=== PATIENT | female | born 1960 | race Caucasian/White ===

== ENCOUNTER 2023-08-31 11:55 | Inpatient (IN) | payer BC ==
[2023-08-31 12:33] VITALS: BMI 22.4
[2023-08-31] MEDS ORDERED: LOPERAMIDE HCL 2 MG CAPSULE PO PRN (12:45)
[2023-08-31] MEDS ORDERED: ONDANSETRON *ODT* 4 MG TABLET SL PRN (12:45)
[2023-08-31] MEDS ORDERED: NALOXONE HCL 0.4 MG/ML VIAL IM PRN (12:45)
[2023-08-31] MEDS ORDERED: MAGNESIUM HYDROX 2400MG/30ML ORAL SUSPENSION 30 ML CUP PO PRN (12:45)
[2023-08-31] MEDS ORDERED: chlordiazePOXIDE HCL 25 MG CAPSULE PO PRN (12:45)
[2023-08-31] MEDS ORDERED: BISMUTH SUBSALICYLATE 524 MG/30 ML PO PRN (12:45)
[2023-08-31] MEDS ORDERED: guaiFENesin 600 MG TABLET.ER (FP) PO PRN (12:45)
[2023-08-31] MEDS ORDERED: DICYCLOMINE HCL 10 MG CAPSULE PO PRN (12:45)
[2023-08-31] MEDS ORDERED: BENZOCAINE/MENTHOL (CHLORASEPTIC ) LOZENGE MM PRN (12:45)
[2023-08-31] MEDS ORDERED: ACETAMINOPHEN 325 MG TABLET (FP) PO PRN (12:45)
[2023-08-31] MEDS ORDERED: IBUPROFEN 400 MG TABLET (FP) PO PRN (12:45)
[2023-08-31] MEDS ORDERED: MAG HYDROX/AL HYDROX/SIMETH 30 ML UNIT-DOSE CUP PO PRN (12:45)
[2023-08-31] MEDS ORDERED: POLYETHYLENE GLYCOL (HEALTHYLAX) 3350 17 GM PACKET PO PRN (12:45)
[2023-08-31] MEDS ORDERED: NALOXONE HCL (KLOXXADO) 8 MG SPRAY NS PRN (12:45)
[2023-08-31] MEDS: NICOTINE 21 MG/24 HOURS TOPICAL PATCH TD SCH (13:24)
[2023-08-31] MEDS: PRENATAL VITAMINS W/ FOLIC ACID TABLET (FP) PO SCH (13:24)
[2023-08-31] MEDS ORDERED: chlordiazePOXIDE HCL 25 MG CAPSULE PO ONE (13:30)
[2023-08-31] MEDS: ALBUTEROL SO4 HFA INHALER IH PRN ×2 (13:46→17:37)
[2023-08-31] MEDS: LISINOPRIL 10 MG TABLET PO SCH (14:07)
[2023-08-31] MEDS: hydrOXYzine PAMOATE 25 MG CAPSULE (FP) PO PRN (16:01)
[2023-08-31] MEDS: chlordiazePOXIDE HCL 25 MG CAPSULE PO SCH ×2 (17:34→22:33)
[2023-08-31] MEDS: BENZONATATE 200 MG CAPSULE PO PRN (21:08)
[2023-08-31] MEDS ORDERED: MELATONIN 5 MG TABLETS PO SCH (22:00)
[2023-08-31] MEDS: THIAMINE HCL 100 MG TABLET (FP) PO SCH (22:33)
[2023-09-01] MEDS: hydrOXYzine PAMOATE 25 MG CAPSULE (FP) PO PRN ×3 (01:15→22:08)
[2023-09-01] MEDS: METHOCARBAMOL 500 MG TABLET PO PRN (01:15)
[2023-09-01] MEDS: ALBUTEROL SO4 HFA INHALER IH PRN ×4 (01:16→22:06)
[2023-09-01] MEDS: chlordiazePOXIDE HCL 25 MG CAPSULE PO SCH ×4 (05:36→22:07)
[2023-09-01] MEDS: PRENATAL VITAMINS W/ FOLIC ACID TABLET (FP) PO SCH (10:13)
[2023-09-01] MEDS: NICOTINE 21 MG/24 HOURS TOPICAL PATCH TD SCH (10:13)
[2023-09-01] MEDS: LISINOPRIL 10 MG TABLET PO SCH (10:13)
[2023-09-01 12:24] LABS: POTASSIUM 4.4 mmol/L (3.5-5.1)
[2023-09-01 12:27] LABS: CALCIUM 10.5 mg/dL (8.5-10.1)
[2023-09-01 12:28] LABS: ALBUMIN 4.7 g/dl (3.4-5.0); BLOOD UREA NITROGEN 18.2 mg/dL (7-18)
[2023-09-01 12:31] LABS: CREATININE 0.8 mg/dL (0.55-1.3)
[2023-09-01 12:33] LABS: BILIRUBIN,TOTAL 0.9 mg/dL (0.2-1); TOT PROT 8.4 g/dl (6.4-8.2)
[2023-09-01 12:40] LABS: HEMATOCRIT 46.6 % (32.4-45.2); HEMOGLOBIN 14.8 GM/dL (10.7-15.3); MCH 30.1 pg (25.7-33.7); MCHC 31.7 g/dl (32.0-36.0); MEAN CELL VOLUME 94.9 fl (80-96); MEAN PLT VOLUME 9.9 fl (7.5-11.1); PLATELET COUNT 249 10^3/uL (134-434); RBC 4.91 M/mm3 (3.60-5.2); RDW 12.2 % (11.6-15.6); WHITE BLOOD COUNT 5.5 K/mm3 (4.0-10.0)
[2023-09-01] MEDS: LACTULOSE 20 GM/30 ML UDC (FOR ORAL USE ONLY) PO SCH ×2 (14:59→22:06)
[2023-09-01] MEDS: IBUPROFEN 600 MG TABLET (FP) PO PRN (15:01)
[2023-09-01] MEDS ORDERED: SUVOREXANT 10 MG TABLET PO PRN (22:00)
[2023-09-01] MEDS: THIAMINE HCL 100 MG TABLET (FP) PO SCH (22:07)
[2023-09-01] MEDS: traZODone HCL 50 MG TABLET (FP) PO PRN (22:08)
[2023-09-02] MEDS: ALBUTEROL SO4 HFA INHALER IH PRN ×3 (05:28→17:22)
[2023-09-02] MEDS: chlordiazePOXIDE HCL 25 MG CAPSULE PO SCH ×4 (05:29→22:02)
[2023-09-02] MEDS: LACTULOSE 20 GM/30 ML UDC (FOR ORAL USE ONLY) PO SCH ×4 (05:30→22:00)
[2023-09-02] MEDS: hydrOXYzine PAMOATE 25 MG CAPSULE (FP) PO PRN ×3 (05:31→22:02)
[2023-09-02] MEDS: NICOTINE 21 MG/24 HOURS TOPICAL PATCH TD SCH (10:04)
[2023-09-02] MEDS: PRENATAL VITAMINS W/ FOLIC ACID TABLET (FP) PO SCH (10:04)
[2023-09-02] MEDS: IBUPROFEN 600 MG TABLET (FP) PO PRN (14:47)
[2023-09-02] MEDS: METHOCARBAMOL 500 MG TABLET PO PRN (17:09)
[2023-09-02] MEDS: BENZONATATE 200 MG CAPSULE PO PRN (18:37)
[2023-09-02] MEDS: THIAMINE HCL 100 MG TABLET (FP) PO SCH (22:01)
[2023-09-02] MEDS: traZODone HCL 50 MG TABLET (FP) PO PRN (22:02)
[2023-09-03] MEDS ORDERED: chlordiazePOXIDE HCL 10 MG CAPSULE PO PRN
[2023-09-03] MEDS: chlordiazePOXIDE HCL 10 MG CAPSULE PO SCH ×4 (05:34→22:11)
[2023-09-03] MEDS: LACTULOSE 20 GM/30 ML UDC (FOR ORAL USE ONLY) PO SCH ×4 (05:34→22:36)
[2023-09-03] MEDS: hydrOXYzine PAMOATE 25 MG CAPSULE (FP) PO PRN ×3 (05:35→22:11)
[2023-09-03] MEDS: ALBUTEROL SO4 HFA INHALER IH PRN ×4 (05:43→22:29)
[2023-09-03] MEDS: PRENATAL VITAMINS W/ FOLIC ACID TABLET (FP) PO SCH (10:20)
[2023-09-03] MEDS: NICOTINE 21 MG/24 HOURS TOPICAL PATCH TD SCH (10:21)
[2023-09-03] MEDS: THIAMINE HCL 100 MG TABLET (FP) PO SCH (22:11)
[2023-09-03] MEDS: traZODone HCL 50 MG TABLET (FP) PO PRN (22:11)
[2023-09-04] MEDS: LACTULOSE 20 GM/30 ML UDC (FOR ORAL USE ONLY) PO SCH ×3 (05:41→22:03)
[2023-09-04] MEDS: chlordiazePOXIDE HCL 10 MG CAPSULE PO SCH ×2 (05:41→16:55)
[2023-09-04] MEDS: ALBUTEROL SO4 HFA INHALER IH PRN ×3 (05:42→22:03)
[2023-09-04] MEDS: PRENATAL VITAMINS W/ FOLIC ACID TABLET (FP) PO SCH (10:09)
[2023-09-04] MEDS: NICOTINE 21 MG/24 HOURS TOPICAL PATCH TD SCH (10:10)
[2023-09-04] MEDS: hydrOXYzine PAMOATE 25 MG CAPSULE (FP) PO PRN ×2 (10:13→22:02)
[2023-09-04] MEDS: METHOCARBAMOL 500 MG TABLET PO PRN ×2 (14:57→22:02)
[2023-09-04] MEDS: IBUPROFEN 600 MG TABLET (FP) PO PRN (19:04)
[2023-09-04 20:52] VITALS: RESP 16
[2023-09-04] MEDS: THIAMINE HCL 100 MG TABLET (FP) PO SCH (22:02)
[2023-09-04] MEDS: traZODone HCL 50 MG TABLET (FP) PO PRN (22:02)
[2023-09-05] MEDS ORDERED: chlordiazePOXIDE HCL 10 MG CAPSULE PO ONE (05:00)
[2023-09-05] MEDS: LACTULOSE 20 GM/30 ML UDC (FOR ORAL USE ONLY) PO SCH (05:27)
[2023-09-05] MEDS: hydrOXYzine PAMOATE 25 MG CAPSULE (FP) PO PRN (05:28)
[2023-09-05] MEDS: NICOTINE 21 MG/24 HOURS TOPICAL PATCH TD SCH (09:11)
[2023-09-05] MEDS: PRENATAL VITAMINS W/ FOLIC ACID TABLET (FP) PO SCH (09:11)
[2023-09-05 09:14] VITALS: BP 148/53; PULSE 74; TEMP 97.1
== END 2023-09-05 09:50 | disposition home or self-care (01) | DRG 775 ==
LOC: YASAS 11:55 → Y3N 13:15
PROVIDERS: ADMIT Allergy & Immunology; ATTEND Surgery
PROC: HZ2ZZZZ Detoxification Services for Substance Abuse Treatment (ICD-10-PCS; principal; 2023-08-31)
DX: F10.230 Alcohol dependence with withdrawal, uncomplicated (principal); F17.210 Nicotine dependence, cigarettes, uncomplicated; F10.280 Alcohol dependence with alcohol-induced anxiety disorder; F10.282 Alcohol dependence with alcohol-induced sleep disorder; F41.9 Anxiety disorder, unspecified; E72.20 Disorder of urea cycle metabolism, unspecified; I10 Essential (primary) hypertension; J45.909 Unspecified asthma, uncomplicated
CPT/HCPCS: 26055; 36415; 80053; 80307; 82140; 85027; 86780; 87635; 93005; 93010

== ENCOUNTER 2023-11-29 11:33 | Inpatient (IN) | payer MEDICARE, OTHER ==
[2023-11-29 11:57] VITALS: BMI 21.1
[2023-11-29] MEDS ORDERED: NALOXONE HCL (KLOXXADO) 8 MG SPRAY NS PRN (13:26)
[2023-11-29] MEDS ORDERED: DICYCLOMINE HCL 10 MG CAPSULE PO PRN (13:26)
[2023-11-29] MEDS ORDERED: guaiFENesin 600 MG TABLET.ER (FP) PO PRN (13:26)
[2023-11-29] MEDS ORDERED: POLYETHYLENE GLYCOL (HEALTHYLAX) 3350 17 GM PACKET PO PRN (13:26)
[2023-11-29] MEDS ORDERED: BENZONATATE 200 MG CAPSULE PO PRN (13:26)
[2023-11-29] MEDS ORDERED: BENZOCAINE/MENTHOL (CHLORASEPTIC ) LOZENGE MM PRN (13:26)
[2023-11-29] MEDS ORDERED: METHOCARBAMOL 500 MG TABLET PO PRN (13:26)
[2023-11-29] MEDS ORDERED: MAG HYDROX/AL HYDROX/SIMETH 30 ML UNIT-DOSE CUP PO PRN (13:26)
[2023-11-29] MEDS ORDERED: chlordiazePOXIDE HCL 25 MG CAPSULE PO ONE (13:26)
[2023-11-29] MEDS ORDERED: hydrOXYzine PAMOATE 25 MG CAPSULE (FP) PO PRN (13:26)
[2023-11-29] MEDS ORDERED: ONDANSETRON *ODT* 4 MG TABLET SL PRN (13:26)
[2023-11-29] MEDS ORDERED: NALOXONE HCL 0.4 MG/ML VIAL IM PRN (13:26)
[2023-11-29] MEDS ORDERED: BISMUTH SUBSALICYLATE 262 MG/15 ML BTL PO PRN (13:26)
[2023-11-29] MEDS ORDERED: LOPERAMIDE HCL 2 MG CAPSULE PO PRN (13:26)
[2023-11-29] MEDS ORDERED: chlordiazePOXIDE HCL 25 MG CAPSULE ONE (14:03)
[2023-11-29] MEDS ORDERED: NICOTINE 21 MG/24 HOURS TOPICAL PATCH ONE (14:04)
[2023-11-29] MEDS ORDERED: ALBUTEROL SO4 HFA INHALER IH ONE (14:04)
[2023-11-29] MEDS: ALBUTEROL SO4 HFA INHALER IH PRN (14:25)
[2023-11-29] MEDS: NICOTINE 21 MG/24 HOURS TOPICAL PATCH TD SCH (14:26)
[2023-11-29] MEDS: IBUPROFEN 400 MG TABLET (FP) PO PRN (15:18)
[2023-11-29] MEDS ORDERED: chlordiazePOXIDE HCL 25 MG CAPSULE PO SCH (17:00)
[2023-11-29] MEDS: chlordiazePOXIDE HCL 25 MG CAPSULE PO SCH ×2 (17:22→22:08)
[2023-11-29] MEDS: traZODone HCL 50 MG TABLET (FP) PO SCH (22:08)
[2023-11-29] MEDS: THIAMINE HCL 100 MG TABLET (FP) PO SCH (22:08)
[2023-11-29] MEDS: MELATONIN 5 MG TABLETS PO SCH (22:08)
[2023-11-30] MEDS: ALBUTEROL SO4 HFA INHALER IH PRN ×5 (02:10→22:28)
[2023-11-30] MEDS: chlordiazePOXIDE HCL 25 MG CAPSULE PO PRN ×2 (02:11→13:25)
[2023-11-30] MEDS: chlordiazePOXIDE HCL 25 MG CAPSULE PO SCH ×4 (05:38→22:24)
[2023-11-30] MEDS: IBUPROFEN 400 MG TABLET (FP) PO PRN (07:08)
[2023-11-30] MEDS ORDERED: hydrOXYzine PAMOATE 25 MG CAPSULE (FP) PO ONE (09:30)
[2023-11-30] MEDS: LISINOPRIL 10 MG TABLET PO SCH (10:04)
[2023-11-30] MEDS: NICOTINE 21 MG/24 HOURS TOPICAL PATCH TD SCH (10:05)
[2023-11-30] MEDS: PRENATAL VITAMINS W/ FOLIC ACID TABLET (FP) PO SCH (10:05)
[2023-11-30] MEDS: ACETAMINOPHEN 325 MG TABLET (FP) PO PRN ×2 (10:07→17:10)
[2023-11-30 11:35] LABS: HEMATOCRIT 35.5 % (32.4-45.2); HEMOGLOBIN 11.9 GM/dL (10.7-15.3); MCH 31.2 pg (25.7-33.7); MCHC 33.5 g/dl (32.0-36.0); MEAN CELL VOLUME 93.2 fl (80-96); MEAN PLT VOLUME 8.8 fl (7.5-11.1); PLATELET COUNT 181 10^3/uL (134-434); RBC 3.81 M/mm3 (3.60-5.2); RDW 13.8 % (11.6-15.6); WHITE BLOOD COUNT 3.9 K/mm3 (4.0-10.0)
[2023-11-30 11:42] LABS: CHLORIDE 106 mmol/L (98-107); POTASSIUM 4.2 mmol/L (3.5-5.1); SODIUM 140 mmol/L (136-145)
[2023-11-30 11:44] LABS: CALCIUM 9.3 mg/dL (8.5-10.1)
[2023-11-30 11:45] LABS: ALBUMIN 3.1 g/dl (3.4-5.0); ANION GAP 6 mmol/L (4-13); BLOOD UREA NITROGEN 21.6 mg/dL (7-18); CO2 28 mmol/L (21-32); GLUCOSE,RANDOM 129 mg/dL (74-106)
[2023-11-30 11:47] LABS: SGPT/ALT 26 U/L (13-61)
[2023-11-30 11:48] LABS: CREATININE 0.9 mg/dL (0.55-1.3); SGOT/AST 13 U/L (15-37)
[2023-11-30 11:49] LABS: TOT PROT 6.5 g/dl (6.4-8.2)
[2023-11-30 11:50] LABS: BILIRUBIN,TOTAL 0.3 mg/dL (0.2-1)
[2023-11-30 11:51] LABS: ALK PHOS 53 U/L (45-117)
[2023-11-30] MEDS: hydrOXYzine PAMOATE 25 MG CAPSULE (FP) PO PRN ×2 (17:11→23:26)
[2023-11-30] MEDS: MELATONIN 5 MG TABLETS PO SCH (22:23)
[2023-11-30] MEDS: traZODone HCL 50 MG TABLET (FP) PO SCH (22:24)
[2023-11-30] MEDS: THIAMINE HCL 100 MG TABLET (FP) PO SCH (22:24)
[2023-11-30] MEDS: guaiFENesin 200 MG/10 ML 10 ML UNIT-DOSE CUPS PO PRN (23:29)
[2023-11-30] MEDS: IBUPROFEN 600 MG TABLET (FP) PO PRN (23:38)
[2023-12-01] MEDS: guaiFENesin 200 MG/10 ML 10 ML UNIT-DOSE CUPS PO PRN (05:38)
[2023-12-01] MEDS: chlordiazePOXIDE HCL 25 MG CAPSULE PO SCH ×4 (05:38→22:11)
[2023-12-01] MEDS: hydrOXYzine PAMOATE 25 MG CAPSULE (FP) PO PRN ×2 (05:39→11:46)
[2023-12-01] MEDS: ALBUTEROL SO4 HFA INHALER IH PRN ×3 (05:39→22:11)
[2023-12-01] MEDS: PRENATAL VITAMINS W/ FOLIC ACID TABLET (FP) PO SCH (10:06)
[2023-12-01] MEDS: LISINOPRIL 10 MG TABLET PO SCH (10:06)
[2023-12-01] MEDS: NICOTINE 21 MG/24 HOURS TOPICAL PATCH TD SCH (10:07)
[2023-12-01] MEDS: MAGNESIUM HYDROX 2400MG/30ML ORAL SUSPENSION 30 ML CUP PO PRN ×2 (11:07→17:14)
[2023-12-01] MEDS: IBUPROFEN 600 MG TABLET (FP) PO PRN (12:42)
[2023-12-01] MEDS ORDERED: hydrOXYzine PAMOATE 25 MG CAPSULE (FP) PO ONE (14:15)
[2023-12-01] MEDS: chlordiazePOXIDE HCL 25 MG CAPSULE PO PRN (14:25)
[2023-12-01] MEDS: traZODone HCL 50 MG TABLET (FP) PO SCH (22:10)
[2023-12-01] MEDS: THIAMINE HCL 100 MG TABLET (FP) PO SCH (22:11)
[2023-12-01] MEDS: MELATONIN 5 MG TABLETS PO SCH (22:11)
[2023-12-01] MEDS: hydrOXYzine PAMOATE 50 MG CAPSULE (FP) PO PRN (22:13)
[2023-12-02] MEDS ORDERED: chlordiazePOXIDE HCL 10 MG CAPSULE PO PRN
[2023-12-02] MEDS: chlordiazePOXIDE HCL 10 MG CAPSULE PO SCH ×4 (05:44→22:56)
[2023-12-02] MEDS: hydrOXYzine PAMOATE 50 MG CAPSULE (FP) PO PRN ×2 (05:46→14:19)
[2023-12-02] MEDS: ALBUTEROL SO4 HFA INHALER IH PRN ×3 (05:49→15:33)
[2023-12-02] MEDS: LISINOPRIL 10 MG TABLET PO SCH (10:26)
[2023-12-02] MEDS: NICOTINE 21 MG/24 HOURS TOPICAL PATCH TD SCH (10:26)
[2023-12-02] MEDS: PRENATAL VITAMINS W/ FOLIC ACID TABLET (FP) PO SCH (10:26)
[2023-12-02] MEDS: IBUPROFEN 600 MG TABLET (FP) PO PRN (10:27)
[2023-12-02] MEDS: traZODone HCL 50 MG TABLET (FP) PO SCH (22:54)
[2023-12-02] MEDS: MELATONIN 5 MG TABLETS PO SCH (22:54)
[2023-12-02] MEDS: THIAMINE HCL 100 MG TABLET (FP) PO SCH (22:55)
[2023-12-03] MEDS: chlordiazePOXIDE HCL 10 MG CAPSULE PO SCH ×2 (05:45→17:46)
[2023-12-03] MEDS: hydrOXYzine PAMOATE 50 MG CAPSULE (FP) PO PRN ×3 (06:14→22:37)
[2023-12-03] MEDS: IBUPROFEN 600 MG TABLET (FP) PO PRN ×2 (07:03→14:24)
[2023-12-03] MEDS: ALBUTEROL SO4 HFA INHALER IH PRN ×2 (07:17→17:47)
[2023-12-03] MEDS: PRENATAL VITAMINS W/ FOLIC ACID TABLET (FP) PO SCH (09:24)
[2023-12-03] MEDS: NICOTINE 21 MG/24 HOURS TOPICAL PATCH TD SCH (09:24)
[2023-12-03] MEDS: LISINOPRIL 10 MG TABLET PO SCH (09:24)
[2023-12-03] MEDS: traZODone HCL 50 MG TABLET (FP) PO SCH (22:36)
[2023-12-03] MEDS: MELATONIN 5 MG TABLETS PO SCH (22:37)
[2023-12-03] MEDS: THIAMINE HCL 100 MG TABLET (FP) PO SCH (22:37)
[2023-12-04] MEDS ORDERED: chlordiazePOXIDE HCL 10 MG CAPSULE PO ONE (05:00)
[2023-12-04] MEDS: ALBUTEROL SO4 HFA INHALER IH PRN (05:49)
[2023-12-04] MEDS: IBUPROFEN 600 MG TABLET (FP) PO PRN (05:51)
[2023-12-04] MEDS: hydrOXYzine PAMOATE 50 MG CAPSULE (FP) PO PRN (05:51)
[2023-12-04] MEDS: LISINOPRIL 10 MG TABLET PO SCH (09:12)
[2023-12-04] MEDS: NICOTINE 21 MG/24 HOURS TOPICAL PATCH TD SCH (09:12)
[2023-12-04] MEDS: PRENATAL VITAMINS W/ FOLIC ACID TABLET (FP) PO SCH (09:12)
[2023-12-04 09:19] VITALS: BP 158/70; PULSE 81; RESP 16; TEMP 97.6
[2023-12-04] MEDS: MAGNESIUM HYDROX 2400MG/30ML ORAL SUSPENSION 30 ML CUP PO PRN (10:40)
== END 2023-12-04 11:04 | disposition home or self-care (01) | DRG 897 ==
LOC: YASAS 11:33 → Y3N 14:20
PROVIDERS: ADMIT Allergy & Immunology; ATTEND Allergy & Immunology
PROC: HZ2ZZZZ Detoxification Services for Substance Abuse Treatment (ICD-10-PCS; principal; 2023-11-29)
DX: F10.230 Alcohol dependence with withdrawal, uncomplicated (principal); F17.210 Nicotine dependence, cigarettes, uncomplicated; F41.9 Anxiety disorder, unspecified; F32.A Depression, unspecified; I10 Essential (primary) hypertension; J45.909 Unspecified asthma, uncomplicated; Z20.822 Contact with and (suspected) exposure to COVID-19
CPT/HCPCS: 36415; 80053; 80307; 85027; 86780; 87635; 93005; 93010

== ENCOUNTER 2024-01-30 13:40 | Inpatient (IN) | payer OTHER ==
[2024-01-30 14:26] VITALS: BMI 19.5
[2024-01-30] MEDS ORDERED: NALOXONE HCL (KLOXXADO) 8 MG SPRAY NS PRN (16:38)
[2024-01-30] MEDS ORDERED: MAGNESIUM HYDROX 2400MG/30ML ORAL SUSPENSION 30 ML CUP PO PRN (16:38)
[2024-01-30] MEDS ORDERED: BISMUTH SUBSALICYLATE 524 MG/30 ML PO PRN (16:38)
[2024-01-30] MEDS ORDERED: LOPERAMIDE HCL 2 MG CAPSULE PO PRN (16:38)
[2024-01-30] MEDS ORDERED: POLYETHYLENE GLYCOL (HEALTHYLAX) 3350 17 GM PACKET PO PRN (16:38)
[2024-01-30] MEDS ORDERED: NALOXONE HCL 0.4 MG/ML VIAL IM PRN (16:38)
[2024-01-30] MEDS ORDERED: BENZOCAINE/MENTHOL (CHLORASEPTIC ) LOZENGE MM PRN (16:38)
[2024-01-30] MEDS ORDERED: ONDANSETRON *ODT* 4 MG TABLET SL PRN (16:38)
[2024-01-30] MEDS: chlordiazePOXIDE HCL 25 MG CAPSULE PO SCH (17:13)
[2024-01-30] MEDS: chlordiazePOXIDE HCL 25 MG CAPSULE PO ONE (17:13)
[2024-01-30] MEDS: hydrOXYzine PAMOATE 25 MG CAPSULE (FP) PO PRN (17:15)
[2024-01-30] MEDS: PRENATAL VITAMINS W/ FOLIC ACID TABLET (FP) PO SCH (17:50)
[2024-01-30] MEDS: IBUPROFEN 400 MG TABLET (FP) PO PRN (17:51)
[2024-01-30] MEDS: NICOTINE POLACRILEX 2 MG GUM BUC PRN (18:17)
[2024-01-30] MEDS: DICYCLOMINE HCL 10 MG CAPSULE PO PRN (18:31)
[2024-01-30] MEDS: ALBUTEROL SO4 HFA INHALER IH PRN (20:17)
[2024-01-30] MEDS: THIAMINE HCL 100 MG TABLET (FP) PO SCH (22:31)
[2024-01-30] MEDS: MELATONIN 5 MG TABLETS PO SCH (22:31)
[2024-01-30] MEDS: MAG HYDROX/AL HYDROX/SIMETH 30 ML UNIT-DOSE CUP PO PRN (22:35)
[2024-01-31] MEDS: LISINOPRIL 10 MG TABLET PO SCH (09:09)
[2024-01-31] MEDS: NICOTINE 14 MG/24 HOURS TOPICAL PATCH TD SCH (10:02)
[2024-01-31] MEDS ORDERED: NICOTINE 21 MG/24 HOURS TOPICAL PATCH TD SCH (10:15)
[2024-01-31] MEDS: NICOTINE 7 MG/24 HOURS TOPICAL PATCH TD ONE (11:17)
[2024-01-31 12:02] LABS: BASO % 0.4 % (0-2.0); EOS % 2.5 % (0-4.5); HEMOGLOBIN 12.8 GM/dL (10.7-15.3); LYMPH % 15.4 % (8-40); MCH 31.9 pg (25.7-33.7); MCHC 34.6 g/dl (32.0-36.0); MEAN CELL VOLUME 92.2 fl (80-96); MEAN PLT VOLUME 8.4 fl (7.5-11.1); MONO % 11.7 % (3.8-10.2); PLATELET COUNT 182 10^3/uL (134-434); RBC 4.01 M/mm3 (3.60-5.2); RDW 12.7 % (11.6-15.6); WHITE BLOOD COUNT 4.8 K/mm3 (4.0-10.0)
[2024-01-31] MEDS: VITAMINS A AND D TOPICAL OINTMENT TP SCH (12:02)
[2024-01-31 12:13] LABS: POTASSIUM 4.3 mmol/L (3.5-5.1)
[2024-01-31] MEDS: chlordiazePOXIDE HCL 25 MG CAPSULE PO PRN (12:22)
[2024-01-31 12:25] LABS: ALBUMIN 3.2 g/dl (3.4-5.0); CREATININE 1.1 mg/dL (0.55-1.3)
[2024-01-31 12:26] LABS: BILIRUBIN,TOTAL 0.4 mg/dL (0.2-1); BLOOD UREA NITROGEN 22.4 mg/dL (7-18); TOT PROT 6.7 g/dl (6.4-8.2)
[2024-01-31] MEDS: hydrOXYzine PAMOATE 25 MG CAPSULE (FP) PO ONE (15:11)
[2024-01-31] MEDS: guaiFENesin 600 MG TABLET.ER (FP) PO PRN (15:37)
[2024-01-31] MEDS: chlordiazePOXIDE HCL 10 MG CAPSULE PO SCH (17:42)
[2024-01-31] MEDS: ACETAMINOPHEN 325 MG TABLET (FP) PO PRN (18:43)
[2024-01-31] MEDS: MELATONIN 5 MG TABLETS PO SCH (22:07)
[2024-01-31] MEDS: IBUPROFEN 600 MG TABLET (FP) PO PRN (22:07)
[2024-01-31] MEDS: traZODone HCL 50 MG TABLET (FP) PO SCH (22:07)
[2024-01-31] MEDS: METHOCARBAMOL 500 MG TABLET PO PRN (22:08)
[2024-02-01] MEDS: chlordiazePOXIDE HCL 25 MG CAPSULE PO SCH (06:00)
[2024-02-01] MEDS: NICOTINE 21 MG/24 HOURS TOPICAL PATCH TD PRN (10:26)
[2024-02-01 17:55] VITALS: RESP 16
[2024-02-01] MEDS: BENZONATATE 200 MG CAPSULE PO PRN (19:26)
[2024-02-02] MEDS ORDERED: chlordiazePOXIDE HCL 10 MG CAPSULE PO PRN
[2024-02-02] MEDS: chlordiazePOXIDE HCL 10 MG CAPSULE PO SCH (05:45)
[2024-02-02 07:04] VITALS: BP 127/61; PULSE 69; TEMP 97.6
[2024-02-03] MEDS ORDERED: chlordiazePOXIDE HCL 10 MG CAPSULE PO SCH (05:00)
[2024-02-04] MEDS ORDERED: chlordiazePOXIDE HCL 10 MG CAPSULE PO ONE (05:00)
== END 2024-02-02 09:45 | disposition home or self-care (01) | DRG 897 ==
LOC: YASAS 13:40 → Y6N 16:22
PROVIDERS: ADMIT Allergy & Immunology; ATTEND Surgery
PROC: HZ2ZZZZ Detoxification Services for Substance Abuse Treatment (ICD-10-PCS; principal; 2024-01-30)
DX: F10.230 Alcohol dependence with withdrawal, uncomplicated (principal); F17.210 Nicotine dependence, cigarettes, uncomplicated; F10.280 Alcohol dependence with alcohol-induced anxiety disorder; F10.282 Alcohol dependence with alcohol-induced sleep disorder; F10.24 Alcohol dependence with alcohol-induced mood disorder; F32.A Depression, unspecified; F41.9 Anxiety disorder, unspecified; I10 Essential (primary) hypertension; J45.20 Mild intermittent asthma, uncomplicated; Z28.310 Unvaccinated for COVID-19; Z28.9 Immunization not carried out for unspecified reason
CPT/HCPCS: 36415; 80053; 85025; 86780; 93005; 93010

== ENCOUNTER 2024-02-27 11:36 | Inpatient (IN) | payer OTHER ==
[2024-02-27 13:04] VITALS: BMI 21.2
[2024-02-27] MEDS ORDERED: BENZONATATE 200 MG CAPSULE PO PRN (14:39)
[2024-02-27] MEDS ORDERED: BENZOCAINE/MENTHOL (CHLORASEPTIC ) LOZENGE MM PRN (14:39)
[2024-02-27] MEDS ORDERED: LOPERAMIDE HCL 2 MG CAPSULE PO PRN (14:39)
[2024-02-27] MEDS ORDERED: ONDANSETRON *ODT* 4 MG TABLET SL PRN (14:39)
[2024-02-27] MEDS ORDERED: IBUPROFEN 400 MG TABLET (FP) PO PRN (14:39)
[2024-02-27] MEDS ORDERED: POLYETHYLENE GLYCOL (HEALTHYLAX) 3350 17 GM PACKET PO PRN (14:39)
[2024-02-27] MEDS ORDERED: MAGNESIUM HYDROX 2400MG/30ML ORAL SUSPENSION 30 ML CUP PO PRN (14:39)
[2024-02-27] MEDS ORDERED: guaiFENesin 600 MG TABLET.ER (FP) PO PRN (14:39)
[2024-02-27] MEDS ORDERED: BISMUTH SUBSALICYLATE 262 MG/15 ML BTL PO PRN (14:39)
[2024-02-27] MEDS ORDERED: DICYCLOMINE HCL 10 MG CAPSULE PO PRN (14:39)
[2024-02-27] MEDS ORDERED: MAG HYDROX/AL HYDROX/SIMETH 30 ML UNIT-DOSE CUP PO PRN (14:39)
[2024-02-27] MEDS: NICOTINE 14 MG/24 HOURS TOPICAL PATCH TD SCH (14:58)
[2024-02-27] MEDS ORDERED: chlordiazePOXIDE HCL 25 MG CAPSULE ONE (15:11)
[2024-02-27] MEDS: chlordiazePOXIDE HCL 25 MG CAPSULE PO PRN (15:15)
[2024-02-27] MEDS ORDERED: chlordiazePOXIDE HCL 25 MG CAPSULE PO SCH (17:00)
[2024-02-27] MEDS: chlordiazePOXIDE HCL 25 MG CAPSULE PO SCH (17:15)
[2024-02-27] MEDS: IBUPROFEN 600 MG TABLET (FP) PO PRN (17:16)
[2024-02-27] MEDS: THIAMINE 100 MG TABLET PO SCH (22:04)
[2024-02-27] MEDS: MELATONIN 5 MG TABLETS PO SCH (22:04)
[2024-02-27] MEDS: hydrOXYzine PAMOATE 25 MG CAPSULE (FP) PO PRN (22:07)
[2024-02-28] MEDS: ALBUTEROL SO4 HFA INHALER IH PRN (08:20)
[2024-02-28] MEDS: LISINOPRIL 5 MG TABLET PO SCH (09:08)
[2024-02-28] MEDS: PRENATAL VITAMINS W/ FOLIC ACID TABLET (FP) PO SCH (09:09)
[2024-02-28] MEDS ORDERED: NICOTINE POLACRILEX 4 MG GUM BUC PRN (14:12)
[2024-02-28 16:48] LABS: URINE APPEARANCE CLEAR; URINE BILIRUBIN NEGATIVE (NEGATIVE); URINE COLOR YELLOW; URINE GLUCOSE (UA) NEGATIVE (NEGATIVE); URINE KETONE NEGATIVE (NEGATIVE); URINE LEUK ESTERASE NEGATIVE (NEGATIVE); URINE NITRITE NEGATIVE (NEGATIVE); URINE PROTEIN NEGATIVE (NEGATIVE); URINE UROBILINOGEN 0.2 mg/dL (0.2-1.0)
[2024-02-28] MEDS: traZODone HCL 50 MG TABLET (FP) PO SCH (22:05)
[2024-02-29] MEDS ORDERED: chlordiazePOXIDE HCL 25 MG CAPSULE PO SCH (05:00)
[2024-02-29] MEDS: chlordiazePOXIDE HCL 10 MG CAPSULE PO SCH (05:31)
[2024-02-29] MEDS: NICOTINE 21 MG/24 HOURS TOPICAL PATCH TD SCH (10:13)
[2024-02-29] MEDS: ACETAMINOPHEN 325 MG TABLET (FP) PO PRN (14:09)
[2024-02-29] MEDS: ESTROGENS,CONJUGATE VAGINAL CR 30 GM TUBE VG SCH (22:09)
[2024-03-01] MEDS ORDERED: chlordiazePOXIDE HCL 10 MG CAPSULE PO PRN
[2024-03-01] MEDS ORDERED: chlordiazePOXIDE HCL 10 MG CAPSULE PO SCH (05:00)
[2024-03-01] MEDS: chlordiazePOXIDE HCL 10 MG CAPSULE PO SCH (05:42)
[2024-03-01 06:55] VITALS: BP 136/60; PULSE 66; RESP 16; TEMP 97.3
[2024-03-02] MEDS ORDERED: chlordiazePOXIDE HCL 10 MG CAPSULE PO ONE (05:00)
[2024-03-02] MEDS ORDERED: chlordiazePOXIDE HCL 10 MG CAPSULE PO SCH (05:00)
[2024-03-03] MEDS ORDERED: chlordiazePOXIDE HCL 10 MG CAPSULE PO ONE (05:00)
== END 2024-03-01 09:02 | disposition home or self-care (01) | DRG 897 ==
LOC: YASAS 11:36 → Y6N 15:19
PROVIDERS: ADMIT Allergy & Immunology; ATTEND Surgery
PROC: HZ2ZZZZ Detoxification Services for Substance Abuse Treatment (ICD-10-PCS; principal; 2024-02-27)
DX: F10.230 Alcohol dependence with withdrawal, uncomplicated (principal); F17.210 Nicotine dependence, cigarettes, uncomplicated; F10.24 Alcohol dependence with alcohol-induced mood disorder; F32.A Depression, unspecified; I10 Essential (primary) hypertension; J45.20 Mild intermittent asthma, uncomplicated; M17.11 Unilateral primary osteoarthritis, right knee; N95.1 Menopausal and female climacteric states; Z28.310 Unvaccinated for COVID-19; Z28.9 Immunization not carried out for unspecified reason
CPT/HCPCS: 81003; J1410

== ENCOUNTER 2024-05-14 11:57 | Inpatient (IN) | payer OTHER ==
[2024-05-14 12:40] VITALS: BMI 20.7
[2024-05-14] MEDS ORDERED: POLYETHYLENE GLYCOL (HEALTHYLAX) 3350 17 GM PACKET PO PRN (13:05)
[2024-05-14] MEDS ORDERED: ONDANSETRON *ODT* 4 MG TABLET SL PRN (13:05)
[2024-05-14] MEDS ORDERED: NICOTINE POLACRILEX 2 MG LOZENGE BC PRN (13:05)
[2024-05-14] MEDS ORDERED: IBUPROFEN 400 MG TABLET (FP) PO PRN (13:05)
[2024-05-14] MEDS ORDERED: BENZOCAINE/MENTHOL (CHLORASEPTIC ) LOZENGE MM PRN (13:05)
[2024-05-14] MEDS ORDERED: LOPERAMIDE HCL 2 MG CAPSULE PO PRN (13:05)
[2024-05-14] MEDS ORDERED: BISMUTH SUBSALICYLATE 524 MG/30 ML PO PRN (13:05)
[2024-05-14] MEDS ORDERED: MAG HYDROX/AL HYDROX/SIMETH 30 ML UNIT-DOSE CUP PO PRN (13:05)
[2024-05-14] MEDS ORDERED: BENZONATATE 200 MG CAPSULE PO PRN (13:05)
[2024-05-14] MEDS ORDERED: NICOTINE 21 MG/24 HOURS TOPICAL PATCH ONE (14:02)
[2024-05-14] MEDS: NICOTINE 21 MG/24 HOURS TOPICAL PATCH TD SCH (14:09)
[2024-05-14] MEDS ORDERED: diazePAM 5 MG TABLET ONE (14:18)
[2024-05-14] MEDS: diazePAM 5 MG TABLET PO PRN (14:21)
[2024-05-14] MEDS ORDERED: IBUPROFEN 600 MG TABLET (FP) PO ONE (14:24)
[2024-05-14] MEDS: IBUPROFEN 600 MG TABLET (FP) PO PRN (14:25)
[2024-05-14] MEDS: ALBUTEROL SO4 HFA INHALER IH PRN (15:14)
[2024-05-14] MEDS: diazePAM 5 MG TABLET PO SCH (17:23)
[2024-05-14] MEDS: ACETAMINOPHEN 325 MG TABLET (FP) PO PRN (17:24)
[2024-05-14] MEDS: MELATONIN 5 MG TABLETS PO SCH (22:34)
[2024-05-14] MEDS: THIAMINE 100 MG TABLET PO SCH (22:34)
[2024-05-15] MEDS: PRENATAL VITAMINS W/ FOLIC ACID TABLET (FP) PO SCH (10:02)
[2024-05-15] MEDS: hydrOXYzine PAMOATE 25 MG CAPSULE (FP) PO PRN (12:22)
[2024-05-15 13:47] LABS: HEMATOCRIT 38.2 % (32.4-45.2); HEMOGLOBIN 12.9 GM/dL (10.7-15.3); MCH 32.1 pg (25.7-33.7); MCHC 33.8 g/dl (32.0-36.0); MEAN CELL VOLUME 94.8 fl (80-96); MEAN PLT VOLUME 8.7 fl (7.5-11.1); PLATELET COUNT 203 10^3/uL (134-434); RBC 4.03 M/mm3 (3.60-5.2); RDW 12.6 % (11.6-15.6); WHITE BLOOD COUNT 4.9 K/mm3 (4.0-10.0)
[2024-05-15 13:54] LABS: CHLORIDE 101 mmol/L (98-107); POTASSIUM 4.8 mmol/L (3.5-5.1); SODIUM 137 mmol/L (136-145)
[2024-05-15 14:00] LABS: ALBUMIN 3.9 g/dl (3.4-5.0); ANION GAP 5 mmol/L (4-13); BLOOD UREA NITROGEN 29.6 mg/dL (7-18); CALCIUM 9.4 mg/dL (8.5-10.1); CO2 32 mmol/L (21-32); GLUCOSE,RANDOM 77 mg/dL (74-106)
[2024-05-15 14:02] LABS: SGOT/AST 40 U/L (15-37); SGPT/ALT 90 U/L (13-61)
[2024-05-15 14:03] LABS: BILIRUBIN,TOTAL 0.4 mg/dL (0.2-1)
[2024-05-15 14:04] LABS: TOT PROT 7.4 g/dl (6.4-8.2)
[2024-05-15 14:06] LABS: ALK PHOS 70 U/L (45-117)
[2024-05-15] MEDS: guaiFENesin 600 MG TABLET.ER (FP) PO PRN (21:06)
[2024-05-15] MEDS: traZODone HCL 50 MG TABLET (FP) PO SCH (22:21)
[2024-05-16] MEDS: diazePAM 5 MG TABLET PO SCH (05:28)
[2024-05-16] MEDS: MAGNESIUM HYDROX 2400MG/30ML ORAL SUSPENSION 30 ML CUP PO PRN (09:57)
[2024-05-16 21:46] VITALS: TEMP 97.6
[2024-05-17] MEDS: diazePAM 5 MG TABLET PO SCH (05:37)
[2024-05-17] MEDS: cloNIDine HCL 0.1 MG TABLET PO ONE (09:22)
[2024-05-17 09:24] VITALS: BP 153/83; PULSE 87; RESP 18
[2024-05-18] MEDS ORDERED: diazePAM 5 MG TABLET PO ONE (06:00)
== END 2024-05-17 09:33 | disposition home or self-care (01) | DRG 897 ==
LOC: YASAS 11:57 → Y3N 13:58
PROVIDERS: ADMIT Allergy & Immunology; ATTEND Surgery
PROC: HZ2ZZZZ Detoxification Services for Substance Abuse Treatment (ICD-10-PCS; principal; 2024-05-14)
DX: F10.230 Alcohol dependence with withdrawal, uncomplicated (principal); F17.210 Nicotine dependence, cigarettes, uncomplicated; F10.282 Alcohol dependence with alcohol-induced sleep disorder; F41.9 Anxiety disorder, unspecified; G47.00 Insomnia, unspecified; I10 Essential (primary) hypertension; N95.1 Menopausal and female climacteric states
CPT/HCPCS: 36415; 80053; 80305; 80307; 85027; 86780; 93005; 93010

== ENCOUNTER 2024-06-12 11:50 | Inpatient (IN) | payer OTHER ==
[2024-06-12] MEDS ORDERED: MAG HYDROX/AL HYDROX/SIMETH 30 ML UNIT-DOSE CUP PO PRN (14:44)
[2024-06-12] MEDS ORDERED: NALOXONE HCL 0.4 MG/ML VIAL IM PRN (14:44)
[2024-06-12] MEDS ORDERED: LOPERAMIDE HCL 2 MG CAPSULE PO PRN (14:44)
[2024-06-12] MEDS ORDERED: DICYCLOMINE HCL 10 MG CAPSULE PO PRN (14:44)
[2024-06-12] MEDS ORDERED: ONDANSETRON *ODT* 4 MG TABLET SL PRN (14:44)
[2024-06-12] MEDS ORDERED: POLYETHYLENE GLYCOL (HEALTHYLAX) 3350 17 GM PACKET PO PRN (14:44)
[2024-06-12] MEDS ORDERED: BENZOCAINE/MENTHOL (CHLORASEPTIC ) LOZENGE MM PRN (14:44)
[2024-06-12] MEDS ORDERED: NALOXONE (NARCAN) HCL 4 MG/0.1 ML SPRAY NS PRN (14:44)
[2024-06-12] MEDS ORDERED: BISMUTH SUBSALICYLATE 262 MG/15 ML BTL PO PRN (14:44)
[2024-06-12] MEDS ORDERED: PRENATAL VITAMINS W/ FOLIC ACID TABLET (FP) PO ONE (14:57)
[2024-06-12] MEDS ORDERED: NICOTINE 21 MG/24 HOURS TOPICAL PATCH ONE (14:57)
[2024-06-12] MEDS: PRENATAL VITAMINS W/ FOLIC ACID TABLET (FP) PO SCH (14:58)
[2024-06-12] MEDS: NICOTINE 21 MG/24 HOURS TOPICAL PATCH TD SCH (14:58)
[2024-06-12] MEDS ORDERED: IBUPROFEN 600 MG TABLET (FP) PO ONE (15:21)
[2024-06-12 15:23] VITALS: BMI 20.7
[2024-06-12] MEDS: IBUPROFEN 600 MG TABLET (FP) PO PRN (15:23)
[2024-06-12] MEDS ORDERED: hydrOXYzine PAMOATE 25 MG CAPSULE (FP) PO ONE (15:53)
[2024-06-12] MEDS ORDERED: ALBUTEROL SO4 HFA INHALER IH ONE (15:53)
[2024-06-12] MEDS: hydrOXYzine PAMOATE 25 MG CAPSULE (FP) PO PRN (15:57)
[2024-06-12] MEDS: ALBUTEROL SO4 HFA INHALER IH PRN (15:58)
[2024-06-12] MEDS: diazePAM 5 MG TABLET PO SCH (17:14)
[2024-06-12] MEDS: METHOCARBAMOL 500 MG TABLET PO PRN (17:14)
[2024-06-12] MEDS: guaiFENesin 600 MG TABLET.ER (FP) PO PRN (17:14)
[2024-06-12] MEDS: diazePAM 5 MG TABLET PO PRN (20:35)
[2024-06-12] MEDS: ACETAMINOPHEN 325 MG TABLET (FP) PO PRN (20:38)
[2024-06-12] MEDS: MELATONIN 5 MG TABLETS PO SCH (22:48)
[2024-06-12] MEDS: THIAMINE 100 MG TABLET PO SCH (22:48)
[2024-06-13] MEDS: LISINOPRIL 10 MG TABLET PO SCH (11:30)
[2024-06-13 15:57] LABS: CHLORIDE 104 mmol/L (98-107); HEMATOCRIT 33.7 % (32.4-45.2); HEMOGLOBIN 11.7 GM/dL (10.7-15.3); MCH 33.3 pg (25.7-33.7); MCHC 34.7 g/dl (32.0-36.0); MEAN PLT VOLUME 9.2 fl (7.5-11.1); PLATELET COUNT 158 10^3/uL (134-434); RBC 3.51 M/mm3 (3.60-5.2); SODIUM 135 mmol/L (136-145); WHITE BLOOD COUNT 2.8 K/mm3 (4.0-10.0)
[2024-06-13 16:09] LABS: CALCIUM 8.8 mg/dL (8.5-10.1)
[2024-06-13 16:10] LABS: ALBUMIN 3.4 g/dl (3.4-5.0); ANION GAP 6 mmol/L (4-13); BLOOD UREA NITROGEN 21.9 mg/dL (7-18); CO2 25 mmol/L (21-32); GLUCOSE,RANDOM 109 mg/dL (74-106)
[2024-06-13 16:13] LABS: CREATININE 1.1 mg/dL (0.55-1.3); SGOT/AST 15 U/L (15-37); SGPT/ALT 27 U/L (13-61)
[2024-06-13 16:14] LABS: BILIRUBIN,TOTAL 0.4 mg/dL (0.2-1)
[2024-06-13 16:15] LABS: TOT PROT 6.3 g/dl (6.4-8.2)
[2024-06-13 16:16] LABS: ALK PHOS 44 U/L (45-117)
[2024-06-13] MEDS: MAGNESIUM HYDROX 2400MG/30ML ORAL SUSPENSION 30 ML CUP PO PRN (17:14)
[2024-06-13] MEDS: traZODone HCL 50 MG TABLET (FP) PO SCH (22:47)
[2024-06-14] MEDS: diazePAM 5 MG TABLET PO SCH (05:33)
[2024-06-14] MEDS: BENZONATATE 200 MG CAPSULE PO PRN (15:40)
[2024-06-14] MEDS: IBUPROFEN 400 MG TABLET (FP) PO PRN (22:24)
[2024-06-15] MEDS: diazePAM 5 MG TABLET PO SCH (06:04)
[2024-06-15 08:40] VITALS: BP 153/70; PULSE 71; RESP 18; TEMP 97.3
[2024-06-16] MEDS ORDERED: diazePAM 5 MG TABLET PO ONE (06:00)
== END 2024-06-15 11:45 | disposition home or self-care (01) | DRG 897 ==
LOC: YASAS 11:50 → Y6N 15:28
PROVIDERS: ADMIT Allergy & Immunology; ATTEND Surgery
PROC: HZ2ZZZZ Detoxification Services for Substance Abuse Treatment (ICD-10-PCS; principal; 2024-06-12)
DX: F10.230 Alcohol dependence with withdrawal, uncomplicated (principal); F10.282 Alcohol dependence with alcohol-induced sleep disorder; F10.280 Alcohol dependence with alcohol-induced anxiety disorder; F17.210 Nicotine dependence, cigarettes, uncomplicated; F32.A Depression, unspecified; I10 Essential (primary) hypertension; J45.909 Unspecified asthma, uncomplicated; M17.11 Unilateral primary osteoarthritis, right knee; Z56.0 Unemployment, unspecified
CPT/HCPCS: 36415; 80053; 80305; 80307; 85027; 86780

== ENCOUNTER 2024-07-26 12:31 | Inpatient (IN) | payer OTHER ==
[2024-07-26 13:19] VITALS: BMI 20.5
[2024-07-26] MEDS ORDERED: BENZONATATE 200 MG CAPSULE PO PRN (14:17)
[2024-07-26] MEDS ORDERED: MAG HYDROX/AL HYDROX/SIMETH 30 ML UNIT-DOSE CUP PO PRN (14:17)
[2024-07-26] MEDS ORDERED: NALOXONE HCL 0.4 MG/ML VIAL IM PRN (14:17)
[2024-07-26] MEDS ORDERED: POLYETHYLENE GLYCOL (HEALTHYLAX) 3350 17 GM PACKET PO PRN (14:17)
[2024-07-26] MEDS ORDERED: ONDANSETRON *ODT* 4 MG TABLET SL PRN (14:17)
[2024-07-26] MEDS ORDERED: BISMUTH SUBSALICYLATE 524 MG/30 ML PO PRN (14:17)
[2024-07-26] MEDS ORDERED: NALOXONE (NARCAN) HCL 4 MG/0.1 ML SPRAY NS PRN (14:17)
[2024-07-26] MEDS ORDERED: LOPERAMIDE HCL 2 MG CAPSULE PO PRN (14:17)
[2024-07-26] MEDS ORDERED: BENZOCAINE/MENTHOL (CHLORASEPTIC ) LOZENGE MM PRN (14:17)
[2024-07-26] MEDS ORDERED: NICOTINE POLACRILEX 2 MG GUM ONE (15:01)
[2024-07-26] MEDS: NICOTINE POLACRILEX 2 MG GUM BUC PRN (15:02)
[2024-07-26] MEDS ORDERED: diazePAM 5 MG TABLET ONE (15:34)
[2024-07-26] MEDS: diazePAM 5 MG TABLET PO ONE (15:35)
[2024-07-26] MEDS: NICOTINE 21 MG/24 HOURS TOPICAL PATCH TD SCH (15:55)
[2024-07-26] MEDS: diazePAM 5 MG TABLET PO SCH (17:24)
[2024-07-26] MEDS: IBUPROFEN 400 MG TABLET (FP) PO PRN (18:05)
[2024-07-26] MEDS: guaiFENesin 600 MG TABLET.ER (FP) PO PRN (19:47)
[2024-07-26] MEDS: ALBUTEROL SO4 HFA INHALER IH PRN (19:48)
[2024-07-26] MEDS: diazePAM 5 MG TABLET PO PRN (19:48)
[2024-07-26] MEDS: MELATONIN 5 MG TABLETS PO SCH (22:26)
[2024-07-26] MEDS: THIAMINE 100 MG TABLET PO SCH (22:26)
[2024-07-26] MEDS: METHOCARBAMOL 500 MG TABLET PO PRN (23:28)
[2024-07-27] MEDS: PRENATAL VITAMINS W/ FOLIC ACID TABLET (FP) PO SCH (09:38)
[2024-07-27] MEDS: IBUPROFEN 600 MG TABLET (FP) PO PRN (09:38)
[2024-07-27] MEDS ORDERED: NICOTINE 21 MG/24 HOURS TOPICAL PATCH TD SCH (10:00)
[2024-07-27] MEDS ORDERED: hydrOXYzine PAMOATE 25 MG CAPSULE (FP) PO PRN (10:13)
[2024-07-27 10:28] LABS: HEMOGLOBIN 13.8 GM/dL (10.7-15.3); MCH 33.4 pg (25.7-33.7); MCHC 35.2 g/dl (32.0-36.0); MEAN CELL VOLUME 94.7 fl (80-96); MEAN PLT VOLUME 9.6 fl (7.5-11.1); PLATELET COUNT 226 10^3/uL (134-434); RBC 4.12 M/mm3 (3.60-5.2); RDW 12.8 % (11.6-15.6); WHITE BLOOD COUNT 4.8 K/mm3 (4.0-10.0)
[2024-07-27 10:29] LABS: BLOOD UREA NITROGEN 20.7 mg/dL (7-18); CALCIUM 9.2 mg/dL (8.5-10.1)
[2024-07-27 10:33] LABS: BILIRUBIN,TOTAL 0.4 mg/dL (0.2-1)
[2024-07-27 10:34] LABS: TOT PROT 7.6 g/dl (6.4-8.2)
[2024-07-27] MEDS: hydrOXYzine PAMOATE 25 MG CAPSULE (FP) PO PRN (12:07)
[2024-07-27] MEDS: ACETAMINOPHEN 325 MG TABLET (FP) PO PRN (18:34)
[2024-07-27] MEDS: traZODone HCL 50 MG TABLET (FP) PO SCH (22:10)
[2024-07-28] MEDS: diazePAM 5 MG TABLET PO SCH (06:10)
[2024-07-28] MEDS: MAGNESIUM HYDROX 2400MG/30ML ORAL SUSPENSION 30 ML CUP PO PRN (15:05)
[2024-07-29] MEDS: diazePAM 5 MG TABLET PO SCH (06:01)
[2024-07-29 09:56] VITALS: BP 151/74; PULSE 83; RESP 18; TEMP 98
[2024-07-30] MEDS ORDERED: diazePAM 5 MG TABLET PO ONE (06:00)
== END 2024-07-29 09:08 | disposition home or self-care (01) | DRG 897 ==
LOC: YASAS 12:31 → Y6N 14:38
PROVIDERS: ADMIT Allergy & Immunology; ATTEND Surgery
PROC: HZ2ZZZZ Detoxification Services for Substance Abuse Treatment (ICD-10-PCS; principal; 2024-07-26)
DX: F10.230 Alcohol dependence with withdrawal, uncomplicated (principal); F17.210 Nicotine dependence, cigarettes, uncomplicated; F10.282 Alcohol dependence with alcohol-induced sleep disorder; F10.280 Alcohol dependence with alcohol-induced anxiety disorder; F32.A Depression, unspecified; F41.9 Anxiety disorder, unspecified; G47.00 Insomnia, unspecified; I10 Essential (primary) hypertension; J45.20 Mild intermittent asthma, uncomplicated; M17.11 Unilateral primary osteoarthritis, right knee
CPT/HCPCS: 36415; 80053; 80305; 80307; 85027; 86780; 93005; 93010

== ENCOUNTER 2024-08-22 12:35 | Inpatient (IN) | payer OTHER ==
[2024-08-22 13:09] VITALS: BMI 20.5
[2024-08-22] MEDS ORDERED: POLYETHYLENE GLYCOL (HEALTHYLAX) 3350 17 GM PACKET PO PRN (13:56)
[2024-08-22] MEDS ORDERED: LOPERAMIDE HCL 2 MG CAPSULE PO PRN (13:56)
[2024-08-22] MEDS ORDERED: NICOTINE POLACRILEX 2 MG GUM BUC PRN (13:56)
[2024-08-22] MEDS ORDERED: BISMUTH SUBSALICYLATE 262 MG/15 ML BTL PO PRN (13:56)
[2024-08-22] MEDS ORDERED: BENZOCAINE/MENTHOL (CHLORASEPTIC ) LOZENGE MM PRN (13:56)
[2024-08-22] MEDS ORDERED: NICOTINE POLACRILEX 2 MG LOZENGE BC PRN (13:56)
[2024-08-22] MEDS ORDERED: MAG HYDROX/AL HYDROX/SIMETH 30 ML UNIT-DOSE CUP PO PRN (13:56)
[2024-08-22] MEDS ORDERED: ONDANSETRON *ODT* 4 MG TABLET SL PRN (13:56)
[2024-08-22] MEDS ORDERED: MAGNESIUM HYDROX 2400MG/30ML ORAL SUSPENSION 30 ML CUP PO PRN (13:56)
[2024-08-22] MEDS ORDERED: IBUPROFEN 400 MG TABLET (FP) PO PRN (13:56)
[2024-08-22] MEDS ORDERED: diazePAM 5 MG TABLET ONE (15:33)
[2024-08-22] MEDS ORDERED: hydrOXYzine PAMOATE 25 MG CAPSULE (FP) PO ONE (15:34)
[2024-08-22] MEDS ORDERED: NICOTINE 14 MG/24 HOURS TOPICAL PATCH TD ONE (15:34)
[2024-08-22] MEDS ORDERED: amLODIPine BESYLATE 5 MG TABLET (FP) ONE (15:34)
[2024-08-22] MEDS ORDERED: IBUPROFEN 600 MG TABLET (FP) PO ONE (15:34)
[2024-08-22] MEDS: amLODIPine BESYLATE 5 MG TABLET (FP) PO ONE (15:40)
[2024-08-22] MEDS: hydrOXYzine PAMOATE 25 MG CAPSULE (FP) PO PRN (15:40)
[2024-08-22] MEDS: IBUPROFEN 600 MG TABLET (FP) PO PRN (15:40)
[2024-08-22] MEDS: NICOTINE 14 MG/24 HOURS TOPICAL PATCH TD SCH (15:40)
[2024-08-22] MEDS: diazePAM 5 MG TABLET PO PRN (15:41)
[2024-08-22] MEDS: diazePAM 5 MG TABLET PO SCH (17:55)
[2024-08-22] MEDS: ALBUTEROL SO4 HFA INHALER IH PRN (18:00)
[2024-08-22] MEDS: ACETAMINOPHEN 325 MG TABLET (FP) PO PRN (18:01)
[2024-08-22] MEDS: guaiFENesin 600 MG TABLET.ER (FP) PO PRN (20:27)
[2024-08-22] MEDS: MELATONIN 5 MG TABLETS PO SCH (22:50)
[2024-08-22] MEDS: THIAMINE 100 MG TABLET PO SCH (22:50)
[2024-08-23] MEDS: diazePAM 5 MG TABLET PO SCH (05:35)
[2024-08-23] MEDS: PRENATAL VITAMINS W/ FOLIC ACID TABLET (FP) PO SCH (09:49)
[2024-08-23] MEDS ORDERED: NICOTINE POLACRILEX 2 MG GUM BUC PRN (10:21)
[2024-08-23] MEDS: NICOTINE 21 MG/24 HOURS TOPICAL PATCH TD SCH (10:41)
[2024-08-23] MEDS: LISINOPRIL 10 MG TABLET PO SCH (14:15)
[2024-08-23] MEDS ORDERED: cloNIDine HCL 0.1 MG TABLET PO PRN (15:30)
[2024-08-23 17:58] LABS: POTASSIUM 4.1 mmol/L (3.5-5.1)
[2024-08-23 18:00] LABS: BLOOD UREA NITROGEN 33.5 mg/dL (7-18); CALCIUM 9.3 mg/dL (8.5-10.1)
[2024-08-23 18:01] LABS: ALBUMIN 3.5 g/dl (3.4-5.0)
[2024-08-23 18:04] LABS: CREATININE 1.2 mg/dL (0.55-1.3)
[2024-08-23 18:05] LABS: BILIRUBIN,TOTAL 0.3 mg/dL (0.2-1); TOT PROT 6.5 g/dl (6.4-8.2)
[2024-08-23] MEDS: BENZONATATE 200 MG CAPSULE PO PRN (22:21)
[2024-08-23] MEDS: traZODone HCL 50 MG TABLET (FP) PO SCH (22:23)
[2024-08-24] MEDS: diazePAM 5 MG TABLET PO SCH (05:48)
[2024-08-24] MEDS: LISINOPRIL 10 MG TABLET PO ONE (13:18)
[2024-08-25] MEDS: diazePAM 5 MG TABLET PO ONE (06:00)
[2024-08-25 06:59] VITALS: RESP 16
[2024-08-25 09:04] VITALS: BP 143/68; PULSE 83; TEMP 97.8
[2024-08-25] MEDS: LISINOPRIL 20 MG TABLET PO SCH (09:06)
== END 2024-08-25 09:26 | disposition home or self-care (01) | DRG 897 ==
LOC: YASAS 12:35 → Y3N 15:12
PROVIDERS: ADMIT Allergy & Immunology; ATTEND Surgery
PROC: HZ2ZZZZ Detoxification Services for Substance Abuse Treatment (ICD-10-PCS; principal; 2024-08-22)
DX: F10.230 Alcohol dependence with withdrawal, uncomplicated (principal); F17.210 Nicotine dependence, cigarettes, uncomplicated; F41.9 Anxiety disorder, unspecified; F32.A Depression, unspecified; I10 Essential (primary) hypertension; J45.909 Unspecified asthma, uncomplicated; M17.11 Unilateral primary osteoarthritis, right knee
CPT/HCPCS: 36415; 80048; 80053; 80305; 80307; 86780

== ENCOUNTER 2024-09-14 11:16 | Inpatient (IN) | payer OTHER ==
[2024-09-14 11:55] VITALS: BMI 20.7
[2024-09-14] MEDS ORDERED: BISMUTH SUBSALICYLATE 262 MG/15 ML BTL PO PRN (14:12)
[2024-09-14] MEDS ORDERED: IBUPROFEN 400 MG TABLET (FP) PO PRN (14:12)
[2024-09-14] MEDS ORDERED: BENZOCAINE/MENTHOL (CHLORASEPTIC ) LOZENGE MM PRN (14:12)
[2024-09-14] MEDS ORDERED: LOPERAMIDE HCL 2 MG CAPSULE PO PRN (14:12)
[2024-09-14] MEDS ORDERED: BENZONATATE 200 MG CAPSULE PO PRN (14:12)
[2024-09-14] MEDS ORDERED: NALOXONE (NARCAN) HCL 4 MG/0.1 ML SPRAY NS PRN (14:12)
[2024-09-14] MEDS ORDERED: DICYCLOMINE HCL 10 MG CAPSULE PO PRN (14:12)
[2024-09-14] MEDS ORDERED: POLYETHYLENE GLYCOL (HEALTHYLAX) 3350 17 GM PACKET PO PRN (14:12)
[2024-09-14] MEDS ORDERED: MAG HYDROX/AL HYDROX/SIMETH 30 ML UNIT-DOSE CUP PO PRN (14:12)
[2024-09-14] MEDS ORDERED: ONDANSETRON *ODT* 4 MG TABLET SL PRN (14:12)
[2024-09-14] MEDS ORDERED: METHOCARBAMOL 500 MG TABLET PO PRN (14:12)
[2024-09-14] MEDS ORDERED: diazePAM 5 MG TABLET ONE (14:43)
[2024-09-14] MEDS ORDERED: hydrOXYzine PAMOATE 25 MG CAPSULE (FP) PO ONE (14:43)
[2024-09-14] MEDS ORDERED: NICOTINE 14 MG/24 HOURS TOPICAL PATCH TD ONE (14:43)
[2024-09-14] MEDS: NICOTINE 14 MG/24 HOURS TOPICAL PATCH TD SCH (14:49)
[2024-09-14] MEDS: diazePAM 5 MG TABLET PO ONE (14:49)
[2024-09-14] MEDS: hydrOXYzine PAMOATE 25 MG CAPSULE (FP) PO PRN (14:50)
[2024-09-14] MEDS: IBUPROFEN 600 MG TABLET (FP) PO PRN (15:57)
[2024-09-14] MEDS: ALBUTEROL SO4 HFA INHALER IH PRN (15:59)
[2024-09-14] MEDS: diazePAM 5 MG TABLET PO SCH (17:17)
[2024-09-14] MEDS: MELATONIN 5 MG TABLETS PO SCH (22:48)
[2024-09-14] MEDS: THIAMINE 100 MG TABLET PO SCH (22:49)
[2024-09-15] MEDS: LISINOPRIL 10 MG TABLET PO SCH (10:10)
[2024-09-15] MEDS: NICOTINE 14 MG/24 HOURS TOPICAL PATCH TD SCH (10:11)
[2024-09-15] MEDS: PRENATAL VITAMINS W/ FOLIC ACID TABLET (FP) PO SCH (10:11)
[2024-09-15] MEDS: ACETAMINOPHEN 325 MG TABLET (FP) PO PRN (10:13)
[2024-09-15] MEDS: guaiFENesin 600 MG TABLET.ER (FP) PO PRN (17:16)
[2024-09-15] MEDS: traZODone HCL 50 MG TABLET (FP) PO SCH (22:45)
[2024-09-16] MEDS: diazePAM 5 MG TABLET PO SCH (06:00)
[2024-09-16] MEDS: MAGNESIUM HYDROX 2400MG/30ML ORAL SUSPENSION 30 ML CUP PO PRN (09:26)
[2024-09-16] MEDS: METHOCARBAMOL 500 MG TABLET PO ONE (11:31)
[2024-09-16] MEDS: diazePAM 5 MG TABLET PO PRN (17:35)
[2024-09-17] MEDS: diazePAM 5 MG TABLET PO SCH (06:17)
[2024-09-17] MEDS ORDERED: LISINOPRIL 20 MG TABLET PO SCH (10:01)
[2024-09-17] MEDS: LISINOPRIL 20 MG TABLET PO ONE (12:34)
[2024-09-17] MEDS: diazePAM 5 MG TABLET PO ONE (15:47)
[2024-09-18] MEDS: diazePAM 5 MG TABLET PO ONE (05:57)
[2024-09-18] MEDS: LISINOPRIL 20 MG TABLET PO SCH (09:02)
[2024-09-18] MEDS: NALOXONE (NYS OPIOID OVERDOSE PROGRAM) 4 MG/0.1 ML SPRAY NS PRN (09:20)
[2024-09-18 10:46] VITALS: BP 161/84; PULSE 85; RESP 18; TEMP 97.7
== END 2024-09-18 09:57 | disposition home or self-care (01) | DRG 897 ==
LOC: YASAS 11:16 → Y3N 14:44 → Y6N 14:57
PROVIDERS: ADMIT Allergy & Immunology; ATTEND Surgery
PROC: HZ2ZZZZ Detoxification Services for Substance Abuse Treatment (ICD-10-PCS; principal; 2024-09-14)
DX: F10.230 Alcohol dependence with withdrawal, uncomplicated (principal); F19.282 Other psychoactive substance dependence with psychoactive substance-induced sleep disorder; F17.210 Nicotine dependence, cigarettes, uncomplicated; F32.A Depression, unspecified; I10 Essential (primary) hypertension; J45.20 Mild intermittent asthma, uncomplicated; M17.11 Unilateral primary osteoarthritis, right knee; Z88.2 Allergy status to sulfonamides
CPT/HCPCS: 36415; 80305; 80307; 93005; 93010

== ENCOUNTER 2024-11-16 10:24 | Inpatient (IN) | payer OTHER ==
[2024-11-16 10:40] VITALS: BMI 19.5
[2024-11-16] MEDS ORDERED: BENZOCAINE/MENTHOL (CHLORASEPTIC ) LOZENGE MM PRN (11:22)
[2024-11-16] MEDS ORDERED: BENZONATATE 200 MG CAPSULE PO PRN (11:22)
[2024-11-16] MEDS ORDERED: ONDANSETRON *ODT* 4 MG TABLET SL PRN (11:22)
[2024-11-16] MEDS ORDERED: NICOTINE POLACRILEX 2 MG GUM BUC PRN (11:22)
[2024-11-16] MEDS ORDERED: BISMUTH SUBSALICYLATE 524 MG/30 ML PO PRN (11:22)
[2024-11-16] MEDS ORDERED: NICOTINE POLACRILEX 2 MG LOZENGE BC PRN (11:22)
[2024-11-16] MEDS ORDERED: MAG HYDROX/AL HYDROX/SIMETH 30 ML UNIT-DOSE CUP PO PRN (11:22)
[2024-11-16] MEDS ORDERED: MAGNESIUM HYDROX 2400MG/30ML ORAL SUSPENSION 30 ML CUP PO PRN (11:22)
[2024-11-16] MEDS ORDERED: POLYETHYLENE GLYCOL (HEALTHYLAX) 3350 17 GM PACKET PO PRN (11:22)
[2024-11-16] MEDS ORDERED: NALOXONE (NARCAN) HCL 4 MG/0.1 ML SPRAY NS PRN (11:22)
[2024-11-16] MEDS ORDERED: NICOTINE 7 MG/24 HOURS TOPICAL PATCH TD SCH (11:30)
[2024-11-16] MEDS ORDERED: NICOTINE 14 MG/24 HOURS TOPICAL PATCH TD ONE (11:38)
[2024-11-16] MEDS ORDERED: LISINOPRIL 10 MG TABLET ONE (11:38)
[2024-11-16] MEDS ORDERED: diazePAM 5 MG TABLET ONE (11:38)
[2024-11-16] MEDS: diazePAM 5 MG TABLET PO SCH (11:41)
[2024-11-16] MEDS: NICOTINE 14 MG/24 HOURS TOPICAL PATCH TD SCH (11:42)
[2024-11-16] MEDS: LISINOPRIL 20 MG TABLET PO SCH (11:43)
[2024-11-16] MEDS: ALBUTEROL SO4 HFA INHALER IH PRN (12:07)
[2024-11-16] MEDS: hydrOXYzine PAMOATE 25 MG CAPSULE (FP) PO PRN (12:35)
[2024-11-16] MEDS: IBUPROFEN 600 MG TABLET (FP) PO PRN (14:37)
[2024-11-16] MEDS: LOPERAMIDE HCL 2 MG CAPSULE PO PRN (14:37)
[2024-11-16] MEDS: MELATONIN 5 MG TABLETS PO SCH (22:20)
[2024-11-16] MEDS: traZODone HCL 50 MG TABLET (FP) PO SCH (22:20)
[2024-11-16] MEDS: THIAMINE 100 MG TABLET PO SCH (22:21)
[2024-11-16] MEDS: ACETAMINOPHEN 325 MG TABLET (FP) PO PRN (22:29)
[2024-11-17] MEDS: PRENATAL VITAMINS W/ FOLIC ACID TABLET (FP) PO SCH (09:56)
[2024-11-17 10:09] LABS: HEMATOCRIT 37.4 % (32.4-45.2); HEMOGLOBIN 12.4 GM/dL (10.7-15.3); MCH 31.1 pg (25.7-33.7); MCHC 33.1 g/dl (32.0-36.0); MEAN CELL VOLUME 93.9 fl (80-96); MEAN PLT VOLUME 8.4 fl (7.5-11.1); PLATELET COUNT 236 10^3/uL (134-434); RBC 3.99 M/mm3 (3.60-5.2); RDW 12.9 % (11.6-15.6)
[2024-11-17] MEDS: diazePAM 5 MG TABLET PO PRN (13:11)
[2024-11-17 13:33] LABS: POTASSIUM 4.4 mmol/L (3.5-5.1)
[2024-11-17 13:47] LABS: ALBUMIN 3.7 g/dl (3.4-5.0); BLOOD UREA NITROGEN 31.2 mg/dL (7-18); CALCIUM 9.3 mg/dL (8.5-10.1)
[2024-11-17 13:51] LABS: BILIRUBIN,TOTAL 0.3 mg/dL (0.2-1); TOT PROT 7.3 g/dl (6.4-8.2)
[2024-11-17] MEDS: guaiFENesin 600 MG TABLET.ER (FP) PO PRN (14:42)
[2024-11-18] MEDS: diazePAM 5 MG TABLET PO SCH (05:59)
[2024-11-18] MEDS: GABAPENTIN 300 MG CAPSULE PO SCH (14:54)
[2024-11-18] MEDS: cloNIDine HCL 0.1 MG TABLET PO PRN (16:39)
[2024-11-19] MEDS: diazePAM 5 MG TABLET PO SCH (05:59)
[2024-11-19] MEDS: LISINOPRIL 20 MG TABLET PO SCH (10:00)
[2024-11-19] MEDS: NALOXONE (NYS OPIOID OVERDOSE PROGRAM) 4 MG/0.1 ML SPRAY NS SCH (14:49)
[2024-11-19 18:20] VITALS: RESP 16
[2024-11-20] MEDS: IBUPROFEN 400 MG TABLET (FP) PO PRN (06:02)
[2024-11-20] MEDS: diazePAM 5 MG TABLET PO ONE (06:03)
[2024-11-20 09:19] VITALS: BP 163/74; PULSE 74; TEMP 98.2
== END 2024-11-20 10:52 | disposition home or self-care (01) | DRG 897 ==
LOC: YASAS 10:24 → Y6N 11:30
PROVIDERS: ADMIT Allergy & Immunology; ATTEND Allergy & Immunology
PROC: HZ2ZZZZ Detoxification Services for Substance Abuse Treatment (ICD-10-PCS; principal; 2024-11-16)
DX: F10.230 Alcohol dependence with withdrawal, uncomplicated (principal); F17.210 Nicotine dependence, cigarettes, uncomplicated; F10.282 Alcohol dependence with alcohol-induced sleep disorder; F10.24 Alcohol dependence with alcohol-induced mood disorder; F32.A Depression, unspecified; I10 Essential (primary) hypertension; J45.20 Mild intermittent asthma, uncomplicated; M17.11 Unilateral primary osteoarthritis, right knee; M79.2 Neuralgia and neuritis, unspecified; Z88.2 Allergy status to sulfonamides
CPT/HCPCS: 36415; 80053; 80305; 80307; 85027

== ENCOUNTER 2024-12-27 11:26 | Inpatient (IN) | payer OTHER ==
[2024-12-27 12:06] VITALS: BMI 21.1
[2024-12-27] MEDS ORDERED: POLYETHYLENE GLYCOL (HEALTHYLAX) 3350 17 GM PACKET PO PRN (13:40)
[2024-12-27] MEDS ORDERED: IBUPROFEN 400 MG TABLET (FP) PO PRN (13:40)
[2024-12-27] MEDS ORDERED: LOPERAMIDE HCL 2 MG CAPSULE PO PRN (13:40)
[2024-12-27] MEDS ORDERED: BISMUTH SUBSALICYLATE 262 MG/15 ML BTL PO PRN (13:40)
[2024-12-27] MEDS ORDERED: ONDANSETRON *ODT* 4 MG TABLET SL PRN (13:40)
[2024-12-27] MEDS ORDERED: MAG HYDROX/AL HYDROX/SIMETH 30 ML UNIT-DOSE CUP PO PRN (13:40)
[2024-12-27] MEDS ORDERED: NICOTINE POLACRILEX 2 MG GUM BUC PRN (13:40)
[2024-12-27] MEDS ORDERED: DICYCLOMINE HCL 10 MG CAPSULE PO PRN (13:40)
[2024-12-27] MEDS ORDERED: NALOXONE (NARCAN) HCL 4 MG/0.1 ML SPRAY NS PRN (13:40)
[2024-12-27] MEDS ORDERED: hydrOXYzine PAMOATE 25 MG CAPSULE (FP) PO ONE (14:42)
[2024-12-27] MEDS ORDERED: NICOTINE 7 MG/24 HOURS TOPICAL PATCH TD ONE (14:42)
[2024-12-27] MEDS ORDERED: diazePAM 5 MG TABLET ONE (14:42)
[2024-12-27] MEDS: diazePAM 5 MG TABLET PO PRN (14:45)
[2024-12-27] MEDS: NICOTINE 7 MG/24 HOURS TOPICAL PATCH TD ONE (14:47)
[2024-12-27] MEDS: hydrOXYzine PAMOATE 25 MG CAPSULE (FP) PO PRN (14:47)
[2024-12-27] MEDS ORDERED: LISINOPRIL 10 MG TABLET PO ONE (15:39)
[2024-12-27] MEDS: ALBUTEROL SO4 HFA INHALER IH PRN (15:57)
[2024-12-27] MEDS: diazePAM 5 MG TABLET PO SCH (17:54)
[2024-12-27] MEDS: LISINOPRIL 10 MG TABLET PO ONE (18:41)
[2024-12-27] MEDS ORDERED: traZODone HCL 50 MG TABLET (FP) PO ONE (22:00)
[2024-12-27] MEDS: MELATONIN 5 MG TABLETS PO SCH (22:41)
[2024-12-27] MEDS: traZODone HCL 50 MG TABLET (FP) PO SCH (22:41)
[2024-12-27] MEDS: THIAMINE 100 MG TABLET PO SCH (22:41)
[2024-12-28] MEDS: IBUPROFEN 600 MG TABLET (FP) PO PRN (05:57)
[2024-12-28] MEDS: NICOTINE 21 MG/24 HOURS TOPICAL PATCH TD SCH (09:11)
[2024-12-28] MEDS: PRENATAL VITAMINS W/ FOLIC ACID TABLET (FP) PO SCH (09:11)
[2024-12-28] MEDS: LISINOPRIL 20 MG TABLET PO SCH (10:39)
[2024-12-28] MEDS: PANTOPRAZOLE 40 MG TABLET PO SCH (10:40)
[2024-12-28] MEDS: MAGNESIUM OXIDE 400 MG TABLET (FP) PO SCH (10:41)
[2024-12-28 11:33] LABS: CHLORIDE 101 mmol/L (98-107); POTASSIUM 4.2 mmol/L (3.5-5.1); SODIUM 136 mmol/L (136-145)
[2024-12-28 11:34] LABS: HEMOGLOBIN 13.9 GM/dL (10.7-15.3); MCH 31.7 pg (25.7-33.7); MCHC 33.9 g/dl (32.0-36.0); MEAN CELL VOLUME 93.6 fl (80-96); MEAN PLT VOLUME 8.3 fl (7.5-11.1); PLATELET COUNT 225 10^3/uL (134-434); RBC 4.38 M/mm3 (3.60-5.2); RDW 12.6 % (11.6-15.6); WHITE BLOOD COUNT 3.7 K/mm3 (4.0-10.0)
[2024-12-28 11:35] LABS: CALCIUM 9.3 mg/dL (8.5-10.1)
[2024-12-28 11:36] LABS: ALBUMIN 4.1 g/dl (3.4-5.0); ANION GAP 3 mmol/L (4-13); BLOOD UREA NITROGEN 23.9 mg/dL (7-18); CO2 31 mmol/L (21-32); GLUCOSE,RANDOM 134 mg/dL (74-106)
[2024-12-28 11:39] LABS: SGOT/AST 24 U/L (15-37); SGPT/ALT 42 U/L (13-61)
[2024-12-28 11:41] LABS: BILIRUBIN,TOTAL 0.5 mg/dL (0.2-1); TOT PROT 8.3 g/dl (6.4-8.2)
[2024-12-28 11:42] LABS: ALK PHOS 75 U/L (45-117)
[2024-12-28] MEDS: guaiFENesin 600 MG TABLET.ER (FP) PO PRN (15:20)
[2024-12-28] MEDS: ACETAMINOPHEN 325 MG TABLET (FP) PO PRN (23:14)
[2024-12-28] MEDS: BENZOCAINE/MENTHOL (CHLORASEPTIC ) LOZENGE MM PRN (23:16)
[2024-12-29] MEDS: diazePAM 5 MG TABLET PO SCH (05:53)
[2024-12-29] MEDS: cloNIDine HCL 0.1 MG TABLET PO PRN (07:45)
[2024-12-29] MEDS: BENZONATATE 200 MG CAPSULE PO PRN (09:50)
[2024-12-29] MEDS: BACLOFEN 10 MG TABLET (FP) PO PRN (22:26)
[2024-12-30] MEDS: diazePAM 5 MG TABLET PO SCH (05:52)
[2024-12-30] MEDS: MAGNESIUM HYDROX 2400MG/30ML ORAL SUSPENSION 30 ML CUP PO PRN (09:37)
[2024-12-30] MEDS: NALTREXONE HCL 50 MG TABLET PO SCH (15:53)
[2024-12-31] MEDS: diazePAM 5 MG TABLET PO ONE (05:29)
[2024-12-31 06:01] VITALS: TEMP 98.2
[2024-12-31] MEDS: LISINOPRIL 10 MG TABLET PO SCH (09:21)
[2024-12-31 09:30] VITALS: BP 162/82; PULSE 73; RESP 16
== END 2024-12-31 10:34 | disposition home or self-care (01) | DRG 897 ==
LOC: YASAS 11:26 → Y6N 14:25
PROVIDERS: ADMIT Allergy & Immunology; ATTEND Allergy & Immunology
PROC: HZ2ZZZZ Detoxification Services for Substance Abuse Treatment (ICD-10-PCS; principal; 2024-12-27)
DX: F10.230 Alcohol dependence with withdrawal, uncomplicated (principal); F17.210 Nicotine dependence, cigarettes, uncomplicated; F10.24 Alcohol dependence with alcohol-induced mood disorder; F10.282 Alcohol dependence with alcohol-induced sleep disorder; F32.A Depression, unspecified; I10 Essential (primary) hypertension; J45.20 Mild intermittent asthma, uncomplicated; Z88.2 Allergy status to sulfonamides
CPT/HCPCS: 36415; 80053; 80305; 80307; 85027; 86780; J0475

== ENCOUNTER 2025-02-13 11:56 | Inpatient (IN) | payer OTHER ==
[2025-02-13 12:36] VITALS: BMI 18.3
[2025-02-13] MEDS ORDERED: DICYCLOMINE HCL 10 MG CAPSULE PO PRN (13:04)
[2025-02-13] MEDS ORDERED: ONDANSETRON *ODT* 4 MG TABLET SL PRN (13:04)
[2025-02-13] MEDS ORDERED: BENZONATATE 200 MG CAPSULE PO PRN (13:04)
[2025-02-13] MEDS ORDERED: METHOCARBAMOL 500 MG TABLET PO PRN (13:04)
[2025-02-13] MEDS ORDERED: LOPERAMIDE HCL 2 MG CAPSULE PO PRN (13:04)
[2025-02-13] MEDS ORDERED: BENZOCAINE/MENTHOL (CHLORASEPTIC ) LOZENGE MM PRN (13:04)
[2025-02-13] MEDS ORDERED: NALOXONE (NARCAN) HCL 4 MG/0.1 ML SPRAY NS PRN (13:04)
[2025-02-13] MEDS ORDERED: PRENATAL VITAMINS W/ FOLIC ACID TABLET (FP) PO ONE (15:53)
[2025-02-13] MEDS ORDERED: diazePAM 5 MG TABLET ONE (15:53)
[2025-02-13] MEDS ORDERED: NICOTINE 21 MG/24 HOURS TOPICAL PATCH ONE (15:53)
[2025-02-13] MEDS: diazePAM 5 MG TABLET PO ONE (15:58)
[2025-02-13] MEDS: PRENATAL VITAMINS W/ FOLIC ACID TABLET (FP) PO SCH (15:58)
[2025-02-13] MEDS: NICOTINE 21 MG/24 HOURS TOPICAL PATCH TD SCH (15:58)
[2025-02-13] MEDS ORDERED: hydrOXYzine PAMOATE 25 MG CAPSULE (FP) PO ONE (16:02)
[2025-02-13] MEDS: hydrOXYzine PAMOATE 25 MG CAPSULE (FP) PO PRN (16:03)
[2025-02-13] MEDS ORDERED: ALBUTEROL SO4 HFA INHALER IH PRN (16:03)
[2025-02-13] MEDS: ALBUTEROL SO4 HFA INHALER IH PRN (17:10)
[2025-02-13] MEDS: IBUPROFEN 600 MG TABLET (FP) PO PRN (17:11)
[2025-02-13] MEDS: diazePAM 5 MG TABLET PO SCH (17:32)
[2025-02-13] MEDS: NALTREXONE HCL 50 MG TABLET PO SCH ×2 (17:33→17:38)
[2025-02-13] MEDS: MAGNESIUM HYDROX 2400MG/30ML ORAL SUSPENSION 30 ML CUP PO PRN (21:43)
[2025-02-13] MEDS: traZODone HCL 50 MG TABLET (FP) PO SCH (22:02)
[2025-02-13] MEDS: THIAMINE 100 MG TABLET PO SCH (22:02)
[2025-02-13] MEDS: MELATONIN 5 MG TABLETS PO SCH (22:03)
[2025-02-14] MEDS: MAG HYDROX/AL HYDROX/SIMETH 30 ML UNIT-DOSE CUP PO PRN (04:00)
[2025-02-14] MEDS: FAMOTIDINE 20 MG TABLET PO SCH (09:29)
[2025-02-14] MEDS: LISINOPRIL 10 MG TABLET PO SCH (09:29)
[2025-02-14] MEDS: diazePAM 5 MG TABLET PO PRN (09:30)
[2025-02-14] MEDS: ACETAMINOPHEN 325 MG TABLET (FP) PO PRN (12:45)
[2025-02-14 17:31] LABS: HEMATOCRIT 33.9 % (34.1-44.9); HEMOGLOBIN 11.6 g/dL (11.2-15.7); MCHC 34.2 g/dl (32.2-35.5); MEAN PLT VOLUME 11.3 fl (9.4-12.3); PLATELET COUNT 218 x10^3/uL (182-369); RDW 13.2 % (12.4-16.4)
[2025-02-14 17:42] LABS: CHLORIDE 99 mmol/L (98-107); POTASSIUM 4.5 mmol/L (3.5-5.1); SODIUM 135 mmol/L (136-145)
[2025-02-14 18:13] LABS: ALBUMIN 3.5 g/dl (3.4-5.0)
[2025-02-14 18:15] LABS: BILIRUBIN,TOTAL 0.6 mg/dL (0.2-1); CALCIUM 9.4 mg/dL (8.5-10.1)
[2025-02-14 18:16] LABS: ANION GAP 5 mmol/L (4-13); CO2 31 mmol/L (21-32); CREATININE 0.8 mg/dL (0.55-1.3); GLUCOSE,RANDOM 105 mg/dL (74-106); SGPT/ALT 102 U/L (13-61)
[2025-02-14 18:17] LABS: BLOOD UREA NITROGEN 19.1 mg/dL (7-18)
[2025-02-14 18:18] LABS: TOT PROT 7.3 g/dl (6.4-8.2)
[2025-02-14 18:20] LABS: ALK PHOS 74 U/L (45-117); SGOT/AST 62 U/L (15-37)
[2025-02-14] MEDS: guaiFENesin 600 MG TABLET.ER (FP) PO PRN (19:04)
[2025-02-14] MEDS: POLYETHYLENE GLYCOL (HEALTHYLAX) 3350 17 GM PACKET PO PRN (19:10)
[2025-02-14] MEDS: traZODone HCL 50 MG TABLET (FP) PO SCH (22:24)
[2025-02-15] MEDS: diazePAM 5 MG TABLET PO SCH (05:47)
[2025-02-15] MEDS: BISACODYL 10 MG SUPP.RECT PR ONE (09:46)
[2025-02-16] MEDS: diazePAM 5 MG TABLET PO SCH (05:42)
[2025-02-16] MEDS: IBUPROFEN 400 MG TABLET (FP) PO PRN (06:34)
[2025-02-16] MEDS: BISMUTH SUBSALICYLATE 524 MG/30 ML PO PRN (11:38)
[2025-02-16 18:53] VITALS: TEMP 97.8
[2025-02-16] MEDS: NICOTINE POLACRILEX 2 MG GUM BUC PRN (19:33)
[2025-02-17] MEDS: diazePAM 5 MG TABLET PO ONE (05:45)
[2025-02-17 06:28] VITALS: RESP 18
[2025-02-17 07:56] VITALS: BP 112/63; PULSE 89
== END 2025-02-17 09:07 | disposition home or self-care (01) | DRG 897 ==
LOC: YASAS 11:56 → Y3N 15:59
PROVIDERS: ADMIT Allergy & Immunology; ATTEND Allergy & Immunology
PROC: HZ2ZZZZ Detoxification Services for Substance Abuse Treatment (ICD-10-PCS; principal; 2025-02-13)
DX: F10.230 Alcohol dependence with withdrawal, uncomplicated (principal); F17.210 Nicotine dependence, cigarettes, uncomplicated; F10.282 Alcohol dependence with alcohol-induced sleep disorder; F10.24 Alcohol dependence with alcohol-induced mood disorder; F41.9 Anxiety disorder, unspecified; I10 Essential (primary) hypertension; J45.20 Mild intermittent asthma, uncomplicated; M17.11 Unilateral primary osteoarthritis, right knee; M54.50 Low back pain, unspecified; G89.29 Other chronic pain; Z88.2 Allergy status to sulfonamides
CPT/HCPCS: 36415; 80053; 80305; 80307; 85027; 86780